=== PATIENT | male | born 1960 | race Caucasian/White ===

== ENCOUNTER → 2017-07-18 | Outpatient (REF) | payer MEDICARE ==
[2017-07-18 13:55] LABS: HEMATOCRIT 41.6 % (42.0-52.0); HEMOGLOBIN 13.7 g/dl (14.0-18.0); MEAN CORPUSCULAR HEMOGLOBIN 31.4 pg (27.0-33.0); MEAN CORPUSCULAR HGB CONC 32.9 g/dl (32.0-36.5); MEAN CORPUSCULAR VOLUME 95.4 fl (80.0-96.0); PLATELET COUNT, AUTOMATED 157 10^3/uL (150-450); RED BLOOD COUNT 4.36 10^6/uL (4.30-6.10); RED CELL DISTRIBUTION WIDTH 15.5 % (11.5-14.5); WHITE BLOOD COUNT 8.6 10^3/uL (4.0-10.0)
[2017-07-18 14:31] LABS: ESTIMATED AVERAGE GLUCOSE 123 MG/DL (60-110); HEMOGLOBIN A1c 5.9 %
[2017-07-18 14:35] LABS: ALBUMIN 4.2 GM/DL (3.2-5.2); ALBUMIN/GLOBULIN RATIO 1.27 (1.00-1.93); ALKALINE PHOSPHATASE 93 U/L (45-117); ALT/SGPT 10 U/L (12-78); ANION GAP 5 MEQ/L (8-16); AST/SGOT 19 U/L (7-37); BILIRUBIN,TOTAL 0.6 MG/DL (0.2-1.0); BLOOD UREA NITROGEN 19 MG/DL (7-18); C REACTIVE PROTEIN QUANTITATIV < 0.30 MG/DL (0.00-0.30); CARBON DIOXIDE LEVEL 32 MEQ/L (21-32); CHLORIDE LEVEL 101 MEQ/L (98-107); CREATININE FOR GFR 1.38 MG/DL (0.70-1.30); GLOMERULAR FILTRATION RATE 56.3 (>56); GLUCOSE, FASTING 115 MG/DL (70-105); POTASSIUM SERUM 4.6 MEQ/L (3.5-5.1); SODIUM LEVEL 138 MEQ/L (136-145); TOTAL PROTEIN 7.5 GM/DL (6.4-8.2)
[2017-07-18 14:36] LABS: ERYTHROCYTE SEDIMENTATION RATE 16 mm/hr (0-20)
== END ==
LOC: M LAB REF 13:20
DX: T87.89 Other complications of amputation stump (principal); L97.812 Non-pressure chronic ulcer of other part of right lower leg with fat layer exposed; E11.628 Type 2 diabetes mellitus with other skin complications; Z79.84 Long term (current) use of oral hypoglycemic drugs; Z79.82 Long term (current) use of aspirin; Z79.891 Long term (current) use of opiate analgesic; Z79.899 Other long term (current) drug therapy; Z96.651 Presence of right artificial knee joint
CPT/HCPCS: 80053

== ENCOUNTER → 2017-07-31 | Outpatient (CLI) | payer MEDICARE | LOC: M RAD 11:08 | DX: L97.812 Non-pressure chronic ulcer of other part of right lower leg with fat layer exposed (principal); T87.89 Other complications of amputation stump; Z89.511 Acquired absence of right leg below knee; I25.10 Atherosclerotic heart disease of native coronary artery without angina pectoris; E78.5 Hyperlipidemia, unspecified; I10 Essential (primary) hypertension; Z98.61 Coronary angioplasty status; F17.210 Nicotine dependence, cigarettes, uncomplicated | CPT/HCPCS: 93979 ==

== ENCOUNTER → 2017-08-16 | Outpatient (CLI) | payer MEDICARE ==
[~2017-08-16] MED LIST: HEPARIN 1,000 UNITS/ML 10ML VIAL (FOR RADIOLOGY& DIALYSIS ONLY) As Ordered; ISOVUE-300 61% 50ML VIAL (Q9967) As Ordered; LIDOCAINE 2% MDV 20 ML VIAL As Ordered; MIDAZOLAM INJ 2 MG/2 ML VIAL (J2250) As Ordered; fentaNYL 100 MCG/2 ML INJECTION (J3010) As Ordered
== END | disposition home or self-care (01) ==
LOC: M IRPRO 06:22
DX: I70.239 Atherosclerosis of native arteries of right leg with ulceration of unspecified site (principal); L97.819 Non-pressure chronic ulcer of other part of right lower leg with unspecified severity; I70.211 Atherosclerosis of native arteries of extremities with intermittent claudication, right leg; N18.9 Chronic kidney disease, unspecified; T87.89 Other complications of amputation stump
CPT/HCPCS: 37221

== ENCOUNTER → 2017-09-12 | Outpatient (CLI) | payer MEDICARE, MEDICAID | LOC: M RAD 11:59 | DX: I71.4 Abdominal aortic aneurysm, without rupture (principal); I70.261 Atherosclerosis of native arteries of extremities with gangrene, right leg; I77.1 Stricture of artery | CPT/HCPCS: 93926 ==

== ENCOUNTER 2017-11-02 11:44 | Day surgery (SDC) | payer MEDICARE, MEDICAID ==
[2017-11-02] MEDS ORDERED: LIDOCAINE 1% SDV 5 ML VIAL SQ (12:15)
[2017-11-02] MEDS ORDERED: LR 1,000 ML IV (12:15)
[2017-11-02 12:31] LABS: BEDSIDE GLUCOSE 141 MG/DL (70-105)
[2017-11-02] MEDS: BUPIVACAINE HCL 0.5% 30 ML VIAL As Ordered (14:34)
[2017-11-02] MEDS: LIDOCAINE 1% SDV INJ 30 ML VIAL As Ordered (14:34)
[2017-11-02] MEDS ORDERED: MIDAZOLAM INJ 2 MG/2 ML VIAL (J2250) As Ordered (14:35)
[2017-11-02] MEDS ORDERED: LIDOCAINE 2% INJ 100 MG/5 ML SDV (FOR ANES.) As Ordered (14:35)
[2017-11-02] MEDS ORDERED: fentaNYL 250 MCG/5 ML INJECTION (J3010) As Ordered (14:35)
[2017-11-02] MEDS ORDERED: ONDANSETRON 4MG/2ML VIAL (J2405) As Ordered (14:35)
[2017-11-02] MEDS ORDERED: PROPOFOL 200 MG/20 ML VIAL As Ordered (14:35)
== END 2017-11-02 15:45 | disposition home or self-care (01) ==
LOC: M SDC 11:44
DX: T87.89 Other complications of amputation stump (principal); I70.238 Atherosclerosis of native arteries of right leg with ulceration of other part of lower leg; L97.819 Non-pressure chronic ulcer of other part of right lower leg with unspecified severity; I70.0 Atherosclerosis of aorta; I25.2 Old myocardial infarction; I25.10 Atherosclerotic heart disease of native coronary artery without angina pectoris; Z98.61 Coronary angioplasty status; E11.9 Type 2 diabetes mellitus without complications; I10 Essential (primary) hypertension; E78.5 Hyperlipidemia, unspecified; K21.9 Gastro-esophageal reflux disease without esophagitis; F17.210 Nicotine dependence, cigarettes, uncomplicated; Z79.82 Long term (current) use of aspirin; Z79.899 Other long term (current) drug therapy
CPT/HCPCS: 27886

== ENCOUNTER → 2018-06-12 | Outpatient (CLI) | payer MEDICARE | LOC: M RAD 09:20 | DX: I74.8 Embolism and thrombosis of other arteries (principal); I73.9 Peripheral vascular disease, unspecified; I71.4 Abdominal aortic aneurysm, without rupture | CPT/HCPCS: 76775 ==

== ENCOUNTER → 2019-07-09 | Outpatient (CLI) | payer MEDICARE, OTHER ==
[~2019-07-09] MED LIST changes: +ASPI81TA26 PO; +ATOR1TAB21 PO; -HEPARIN 1,000 UNITS/ML 10ML VIAL (FOR RADIOLOGY& DIALYSIS ONLY) As Ordered; -ISOVUE-300 61% 50ML VIAL (Q9967) As Ordered; -LIDOCAINE 2% MDV 20 ML VIAL As Ordered; +LISI10TA4 PO; +METF10004 PO; +METO25TA4 PO; -MIDAZOLAM INJ 2 MG/2 ML VIAL (J2250) As Ordered; +MULTTAB50 PO; +NAPR-885 PO; +OXYC1TAB15 PO; +PANT40TA3 PO; +VENL150C43 PO; -fentaNYL 100 MCG/2 ML INJECTION (J3010) As Ordered
--- NOTE | 2019-07-09 09:23 | REP ---
ABDOMINAL AORTIC SONOGRAPHY: HISTORY: Abdominal aortic aneurysm without rupture. Comparison aortic sonography is from June 12, 2018. This showed an aortobi-iliac stent graft in place in a 4.8 cm fusiform abdominal aortic aneurysm. TODAY'S SONOGRAPHIC FINDINGS: The abdominal aorta measures 2.4 x 2.5 cm in AP x transverse dimension at the diaphragmatic hiatus. At the level of the renal arteries, the aorta is obscured by bowel gas. The mid aortic dimensions are 2.2 x 2.2 cm. The distal aorta measures 4.7 x 4.9 cm in AP dimension unchanged. Aortobi-iliac stent is again seen. Right and left common iliac artery dimensions are 1.6 and 2.5 cm anteroposterior respectively. IMPRESSION: Essentially stable examination. Aortobi-iliac stent graft in place. 4.9 cm maximum AP dimension of the abdominal aorta. Electronically Signed by Cem Ramachandran MD 07/09/2019 10:36 A
== END ==
LOC: M RAD 07:23
PROVIDERS: ATTEND Physician Assistant
DX: I71.4 Abdominal aortic aneurysm, without rupture (principal)

== ENCOUNTER → 2020-10-13 | Outpatient (POV) | payer OTHER ==
[~2020-10-13] VITALS: Ht 175.3 cm; Wt 77.3 kg
[~2020-10-13] MED LIST changes: +LISI10TA22 PO; -LISI10TA4 PO; +PANT40TA29 PO; -PANT40TA3 PO
[2020-10-13 13:30] VITALS: BP 121/72
--- NOTE | 2020-10-14 15:57 | IRCOV ---
[facility] IR Consult Office Visit IR Consult Office Visit DATE: Oct 13, 2020 REASON FOR CONSULTATION/CHIEF COMPLAINT: Nonhealing ulcers. HISTORY OF PRESENT ILLNESS: 60-year-old diabetic, smoker, male status post right lower extremity BKA in 2011 followed by right lower extremity angiogram and right external iliac stenting, 2 years ago, presents with left lower extremity nonhealing ulcers and rest pain with elevation. He denies limb swelling. He denies prior left lower extremity gangrene, amputation or arterial intervention. He does have a AAA which was repaired with aortobiiliac endograft. He denies chest pain, shortness of breath, paroxysmal nocturnal dyspnea or orthopnea. He suffered an SC in 2001 and reports cardiac stents. He is diabetic and hypertensive. He continues to smoke half a pack a day. ALLERGIES: Please see below. HOME MEDICATIONS: Please see below. PAST MEDICAL HISTORY: Coronary artery disease Diabetes Hyperlipidemia Hypertension PAST SURGICAL HISTORY: Right BKA Coronary stents FAMILY HISTORY: Noncontributory. SOCIAL HISTORY: Smokes half a pack a day. Denies alcohol or drugs. REVIEW OF SYSTEMS: Otherwise negative. PHYSICAL EXAMINATION: VITAL SIGNS: Please see below. GENERAL APPEARANCE: Appears well. Comfortable at rest. HEENT: No scleral icterus. RESPIRATORY: Normal breathing at rest. CARDIOVASCULAR: Normal rate. ABDOMEN: Non-distended. Soft. No pulsatile mass. EXTREMITIES: Right lower extremity: BKA. Pressure ulcers at the contact surface with the prosthesis. Color normal. Temperature normal. No edema. Femoral pulse 1+ popliteal pulse 1+. Left lower extremity: No edema. Distal ulceration on the left lower extremity. Skin color and temperature normal. Femoral pulse 1+ popliteal nonpalpable DP/PT nonpalpable. NEUROLOGICAL: Alert and oriented. PSYCHIATRIC: Appropriate to circumstance. LABORATORY DATA: None recent. Imaging: I personally reviewed the angiogram from 08/16/[address] Hussein. Aortobiiliac endograft. Right groin was accessed. A reflux right lower extremity angiogram was performed which demonstrated external iliac stenosis. Complete right SFA and popliteal occlusion and BKA. A right external iliac stent was placed. The left groin was also accessed and a reflux angiogram demonstrates patent left profunda femoris and proximal superficial femoral artery. The entire left lower extremity was not imaged. ASSESSMENT/PLAN: 60-year-old smoker, diabetic male with left lower extremity nonhealing ulcers and rest pain. I agree he has indication for angiogram and/or intervention in the same setting if possible. We discussed the risks and benefits of the procedure and patient would like to proceed. We'll schedule the patient for left lower extremity angiogram and intervention. I spent 30 minutes in consultation with the patient. Thank you for this referral. Cc Dr. Burnham Allergies Coded Allergies: MS - No Known Drug Allergy (Unverified Allergy, Unknown, 10/27/17) Home Medications Scheduled (Multi Vitamin Mens), 1 TAB PO DAILY, (Reported) Aspirin (Aspirin EC), 81 MG PO DAILY, (Reported) Atorvastatin Calcium (Atorvastatin Calcium), 20 MG PO DAILY, (Reported) Lisinopril (Lisinopril), 10 MG PO DAILY, (Reported) Metformin HCl (Metformin HCl), 1,000 MG PO BID, (Reported) Metoprolol Tartrate (Metoprolol Tartrate), 25 MG PO DAILY, (Reported) Pantoprazole Sodium (Pantoprazole Sodium), 40 MG PO DAILY, (Reported) Venlafaxine HCl (Venlafaxine HCl ER), 150 MG PO DAILY, (Reported) Scheduled PRN Naproxen (Naproxen), 500 MG PO Q8HP PRN for pain, (Reported) Oxycodone HCl/Acetaminophen (Oxycodon-Acetaminophen 7.5-325), 1 TAB PO Q4HP PRN for pain, (Reported) VS, I&O, 24H, Fishbone Vital Signs/I&O Vital Signs Date Time Temp Pulse Resp B/P (MAP) Pulse Ox O2 Delivery O2 Flow Rate FiO2 10/13/20 13:30 96.6 84 20 121/72 (88) 96 Room Air EDWIN RANGEL MD Oct 14, 2020 15:57
== END ==
LOC: M IRPOV 13:22
PROVIDERS: ATTEND Radiology Diagnostic Radiology
DX: I70.201 Unspecified atherosclerosis of native arteries of extremities, right leg (principal); E11.622 Type 2 diabetes mellitus with other skin ulcer; L97.929 Non-pressure chronic ulcer of unspecified part of left lower leg with unspecified severity; I25.10 Atherosclerotic heart disease of native coronary artery without angina pectoris; I10 Essential (primary) hypertension; E78.5 Hyperlipidemia, unspecified; F17.210 Nicotine dependence, cigarettes, uncomplicated; I25.2 Old myocardial infarction; Z89.511 Acquired absence of right leg below knee; Z95.828 Presence of other vascular implants and grafts

== ENCOUNTER → 2020-10-21 | Outpatient (CLI) | payer OTHER ==
[~2020-10-21] MED LIST changes: +ISOVUE-300 61% 50ML VIAL As Ordered ONE; +LIDOCAINE 1% MDV 20ML VIAL As Ordered ONE; +MIDAZOLAM INJ 2MG/2ML VIAL (J2250 PER 1MG) As Ordered ONE; +PROMETHAZINE INJ 25 MG/ML VIAL (J2550) As Ordered ONE; +diphenhydrAMINE 50MG/ML VIAL (J1200) As Ordered ONE; +fentaNYL 100 MCG/2 ML INJECTION (J3010) As Ordered ONE
[2020-10-21 08:13] LABS: HEMATOCRIT 42.3 % (42.0-52.0); HEMOGLOBIN 13.8 g/dl (13.5-17.5); MEAN CORPUSCULAR HEMOGLOBIN 31.9 pg (27.0-33.0); MEAN CORPUSCULAR HGB CONC 32.6 g/dl (32.0-36.5); MEAN CORPUSCULAR VOLUME 97.7 fl (80.0-96.0); PLATELET COUNT, AUTOMATED 227 10^3/uL (150-450); RED BLOOD COUNT 4.33 10^6/uL (4.30-6.10)
--- NOTE | 2020-10-21 08:18 | IRHP ---
[facility] IR Pre-Procedure H & P General Date of Service: Oct 21, 2020 Procedure: Same Day Surgery Interval History and Physical I have seen the patient and reviewed last H & P performed within 30 days. There is no significant interval change. History of Present Illness Chief Complaint The patient is a 60-year-old male admitted with a reason for visit of PAD. PRE-PROCEDURE DIAGNOSIS: PAD HEART: normal rate. LUNGS: normal breathing at rest. ASA Classification ASA Classification: III-Severe systemic dis. Mallampati Score: II NPO: Yes Problems with prior sedation: No Obstructive Sleep Apnea: No Plan moderate sedation Allergies Coded Allergies: MS - No Known Drug Allergy (Unverified Allergy, Unknown, 10/27/17) Home Medications Scheduled (Multi Vitamin Mens), 1 TAB PO DAILY, (Reported) Aspirin (Aspirin EC), 81 MG PO DAILY, (Reported) Atorvastatin Calcium (Atorvastatin Calcium), 20 MG PO DAILY, (Reported) Lisinopril (Lisinopril), 10 MG PO DAILY, (Reported) Metformin HCl (Metformin HCl), 1,000 MG PO BID, (Reported) Metoprolol Tartrate (Metoprolol Tartrate), 25 MG PO DAILY, (Reported) Pantoprazole Sodium (Pantoprazole Sodium), 40 MG PO DAILY, (Reported) Venlafaxine HCl (Venlafaxine HCl ER), 150 MG PO DAILY, (Reported) Scheduled PRN Naproxen (Naproxen), 500 MG PO Q8HP PRN for pain, (Reported) Oxycodone HCl/Acetaminophen (Oxycodon-Acetaminophen 7.5-325), 1 TAB PO Q4HP PRN for pain, (Reported) VS, I&O, 24H, Daren Vital Signs/I&O Vital Signs Date Time Temp Pulse Resp B/P (MAP) Pulse Ox O2 Delivery O2 Flow Rate FiO2 10/21/20 07:55 98.4 94 18 95 Room Air Laboratory Data 24H LABS Laboratory Tests 2 10/21/20 07:55: Nucleated Red Blood Cells % (auto) 0.0 CBC/BMP Laboratory Tests 10/21/20 07:55 EDWIN RANGEL MD Oct 21, 2020 08:18
[2020-10-21 08:25] LABS: BLOOD UREA NITROGEN 19 MG/DL (7-18); CALCIUM LEVEL 9.3 MG/DL (8.8-10.2); CARBON DIOXIDE LEVEL 31 MEQ/L (21-32); CHLORIDE LEVEL 101 MEQ/L (98-107); CREATININE FOR GFR 0.99 MG/DL (0.70-1.30); GLOMERULAR FILTRATION RATE > 60.0 (>49); GLUCOSE, FASTING 142 MG/DL (70-100); POTASSIUM SERUM 4.3 MEQ/L (3.5-5.1); SODIUM LEVEL 135 MEQ/L (136-145)
[2020-10-21 13:00] VITALS: BP 150/84
--- NOTE | 2020-10-23 10:07 | IRPON ---
IR Postoperative Note Date Of Procedure: Oct 21, 2020 Time Of Procedure: 16:00 IR Postoperative Note IR Ultrasound-guided left antegrade common femoral artery access. IR Moderate sedation. Clinical Information:Nonhealing left lower extremity ulcers and rest pain. Physician: Dr. Gandara. Procedure: The patient was advised of the benefits, risks, and alternatives of the procedure and informed consent was obtained. A time out was performed with verification of the patient's name, MRN, site of procedure, and type of procedure to be performed. The patient was positioned in the supine position on the angiographic table. The site was prepped and draped in the usual sterile fashion. Moderate sedation was performed by the physician including the presence of an independent trained RN, who assisted in monitoring the patient's level of consciousness and physiological status. Following the administration of fe ntanyl and Versed, the physician spent 45 minutes of continuous [id number] time with the patient. A satin finisher radiograph reveals aortobiiliac endograft. Right common and external iliac stent. Ultrasound of the left groin demonstrates calcified but patent left common femoral artery. Lidocaine was used for local anesthesia. The left common femoral artery was accessed antegrade, under ultrasound guidance with a microintroducer set. A short 0.018" Wendel wire was inserted and the needle was exchanged for a 4 Fr microintroducer sheath. Despite adequate sedation, the patient has involuntary jerks of the left leg which we could not control and made it impossible to proceed. Access was removed, pressure held and hemostasis achieved. A sterile dressing was applied to the site. The patient tolerated the procedure well and was returned to the PRU in stable condition. EBL: < 5 mL. Complications:None. Impression: Patient has involuntary jerking movements in the left lower extremity which did not improve with sedation. Patient will be brought back for left lower extremity angiography and intervention under anesthesia, with paralytics if required. Thank you for this referral. Cc EDWIN Easton MD Oct 23, 2020 10:07
== END ==
LOC: M IRPRO 07:17
PROVIDERS: ATTEND Radiology Diagnostic Radiology
DX: L97.809 Non-pressure chronic ulcer of other part of unspecified lower leg with unspecified severity (principal); Z79.82 Long term (current) use of aspirin; Z79.84 Long term (current) use of oral hypoglycemic drugs; Z79.899 Other long term (current) drug therapy

== ENCOUNTER → 2020-10-21 | Outpatient (CLI) | payer OTHER ==
[~2020-10-21] MED LIST changes: -ISOVUE-300 61% 50ML VIAL As Ordered ONE; -LIDOCAINE 1% MDV 20ML VIAL As Ordered ONE; -MIDAZOLAM INJ 2MG/2ML VIAL (J2250 PER 1MG) As Ordered ONE; -PROMETHAZINE INJ 25 MG/ML VIAL (J2550) As Ordered ONE; -diphenhydrAMINE 50MG/ML VIAL (J1200) As Ordered ONE; -fentaNYL 100 MCG/2 ML INJECTION (J3010) As Ordered ONE
--- NOTE | 2020-10-21 20:44 | ECGEPIP ---
[facility] Test Date: 2020-10-21 Pat Name: BARBARA RAMIREZ Department: Room: - Gender: Male Production Tester: juan : [id number] Requested By: KIM LOPEZ Order Number: [id number] Reading MD: Kemal Zapata Measurements Intervals Holly Rate: 89 P: 61 MI: 118 QRS: 46 QRSD: 98 T: 45 QT: 370 QTc: 450 Interpretive Statements Normal sinus rhythm Inferior infarct , age undetermined Cannot rule out Anterior infarct , age undetermined NO PRIOR Electronically Signed on 10-21-2020 20:43:30 EDT by Kemal Zapata
== END ==
LOC: M LABSMTC 11:21
PROVIDERS: ATTEND Anesthesiology
DX: L97.809 Non-pressure chronic ulcer of other part of unspecified lower leg with unspecified severity (principal); I73.9 Peripheral vascular disease, unspecified; Z79.82 Long term (current) use of aspirin; Z79.84 Long term (current) use of oral hypoglycemic drugs; Z79.899 Other long term (current) drug therapy
CPT/HCPCS: 36140; 80048; 85027; 93005; 99152; 99153; C1769; C1887; C1894; J1200; J1644; J2250; J3010; Q9967; U0002

== ENCOUNTER → 2020-10-27 | Outpatient (CLI) | payer OTHER ==
[~2020-10-27] MED LIST changes: +MITI1CAP PO; +OYST1TAB PO; +VASC1CAP2 PO
== END ==
LOC: M LABSMTC 11:17
PROVIDERS: ATTEND Anesthesiology
DX: Z11.52 Encounter for screening for COVID-19 (principal)

== ENCOUNTER → 2020-10-29 | Outpatient (CLI) | payer OTHER ==
[~2020-10-29] MED LIST changes: +ISOVUE-300 61% 50ML VIAL As Ordered ONE; +KETAMINE HCL 200 MG/20 ML VIAL As Ordered ONE; +LIDOCAINE 1% MDV 20ML VIAL As Ordered ONE; +LIDOCAINE 2% 100MG/5ML SDV (FOR ANES.) As Ordered ONE; +LR 1,000 ML IV ONE; +LR 1,000 ML IV SCH; +MIDAZOLAM INJ 2MG/2ML VIAL (J2250 PER 1MG) As Ordered ONE; +ONDANSETRON 4MG/2ML VIAL IV PRN; +PERCOCET 5MG/325MG TAB PO PRN; +dexameTHASONE 4 MG/ML 1ML VIAL (J1100 PER 1MG) As Ordered ONE; +fentaNYL 100 MCG/2 ML INJECTION (J3010) As Ordered ONE; +fentaNYL 100 MCG/2 ML INJECTION (J3010) IV PRN; +propofoL 200 MG/20 ML VIAL As Ordered ONE
--- NOTE | 2020-10-29 14:52 | IRPON ---
IR Postoperative Note Date Of Procedure: Oct 29, 2020 Time Of Procedure: 14:34 IR Postoperative Note IR Left leg angiogram. IR Left below-knee runoff arteriogram. IR Ultrasound-guided left common femoral artery access. Clinical Information:Left lower extremity rest pain and nonhealing ulcers. Aortobiiliac endograft. Left antegrade access for angiogram and/or intervention. Physician: Dr. Gandara. Procedure: The patient was advised of the benefits, risks, and alternatives of the procedure and informed consent was obtained. A time out was performed with verification of the patient's name, MRN, site of procedure, and type of procedure to be performed. The patient was positioned in the supine position on the angiographic table. The site was prepped and draped in the usual sterile fashion. Anesthesia was performed by the anesthesia team. Ultrasound of the left groin demonstrates irregular and calcified left common femoral artery. Lidocaine was used for local anesthesia. The left common femoral artery was accessed antegrade, under ultrasound guidance with a microintroducer set. A short 0.018" [place] wire was inserted under fluoroscopy guidance and the needle was exchanged for a 4 Fr microintroducer sheath. The guidewire and dilator were removed and a 0.035" Bentson wire was placed into the artery. A 6 Fr sheath was placed over the wire. A left leg angiogram was performed. This demonstrates patent profunda femoris with extensive collateralization. No reflux into the superficial femoral artery. Angiography further down the left leg was performed and this demonstrates excessive collateralization in the distal thigh from the profunda femoris. Complete occlusion of the proximal, mid and distal superficial femoral artery. Reconstitution of the proximal anterior tibial artery and tibioperoneal trunk via collaterals. A below knee run off arteriogram was performed and this demonstrates patent proximal, mid and distal anterior tibial artery with extremely slow flow and very poor contribution to the left foot due to lack of inflow. Patent proximal peroneal artery which tarango out in the mid calf. Occluded proximal, mid and distal posterior tibial artery. Very poor vascular supply to the left foot. The left groin sheath was retracted under fluoroscopy guidance and a high pressure reflux angiogram was performed to try to identify the origin of the superficial femoral artery. This demonstrates hypertrophied profunda femoris with no reflux into the superficial femoral artery. There is retrograde filling of collaterals but no superficial femoral artery. The catheter, wire and sheath were removed, pressure held and hemostasis achieved. A sterile dressing was applied to the site. The patient tolerated the procedure well and was returned to the PRU in stable condition. EBL: < 5 mL. Complications:None. Impression: 1. Left leg angiogram demonstrates occluded superficial femoral artery with hypertrophied profunda femoris with extensive collateralization in the left thigh. 2. Distal reconstitution at the proximal anterior tibial artery and ti bioperoneal trunk. 3. Poor below-knee arterial flow with occluded entire posterior tibial artery and mid peroneal artery. Anterior tibial artery does appear patent to the foot but with extremely delayed flow likely due to poor inflow. 4. Patient will referred for surgical evaluation. Thank you for this referral. Cc EDWIN Easton MD Oct 29, 2020 14:52
[2020-10-29 20:40] VITALS: BP 175/90
== END ==
LOC: M IRPRO 12:13
PROVIDERS: ATTEND Radiology Diagnostic Radiology
DX: I70.222 Atherosclerosis of native arteries of extremities with rest pain, left leg (principal); I70.249 Atherosclerosis of native arteries of left leg with ulceration of unspecified site; L97.829 Non-pressure chronic ulcer of other part of left lower leg with unspecified severity; I10 Essential (primary) hypertension; E11.51 Type 2 diabetes mellitus with diabetic peripheral angiopathy without gangrene; E78.2 Mixed hyperlipidemia; F17.210 Nicotine dependence, cigarettes, uncomplicated; F32.9 Major depressive disorder, single episode, unspecified; I25.2 Old myocardial infarction; I25.10 Atherosclerotic heart disease of native coronary artery without angina pectoris; I71.4 Abdominal aortic aneurysm, without rupture; K21.9 Gastro-esophageal reflux disease without esophagitis; M54.9 Dorsalgia, unspecified; R94.31 Abnormal electrocardiogram [ECG] [EKG]; Z79.82 Long term (current) use of aspirin; Z79.899 Other long term (current) drug therapy; Z95.5 Presence of coronary angioplasty implant and graft
CPT/HCPCS: 36246; 75710; C1769; C1887; C1894; G0269

== ENCOUNTER 2021-12-27 08:20 | Outpatient (RCR) | payer OTHER ==
[~2021-12-27 08:20] MED LIST changes: -ISOVUE-300 61% 50ML VIAL As Ordered ONE; -KETAMINE HCL 200 MG/20 ML VIAL As Ordered ONE; -LIDOCAINE 1% MDV 20ML VIAL As Ordered ONE; -LIDOCAINE 2% 100MG/5ML SDV (FOR ANES.) As Ordered ONE; -LR 1,000 ML IV ONE; -LR 1,000 ML IV SCH; -MIDAZOLAM INJ 2MG/2ML VIAL (J2250 PER 1MG) As Ordered ONE; -ONDANSETRON 4MG/2ML VIAL IV PRN; -OXYC1TAB15 PO; +OXYC7.5T3 PO; -PERCOCET 5MG/325MG TAB PO PRN; -dexameTHASONE 4 MG/ML 1ML VIAL (J1100 PER 1MG) As Ordered ONE; -fentaNYL 100 MCG/2 ML INJECTION (J3010) As Ordered ONE; -fentaNYL 100 MCG/2 ML INJECTION (J3010) IV PRN; -propofoL 200 MG/20 ML VIAL As Ordered ONE
== END 2021-12-30 ==
LOC: M PT 08:20
PROVIDERS: ATTEND Family Medicine
DX: Z89.511 Acquired absence of right leg below knee (principal); T87.89 Other complications of amputation stump